=== PATIENT | male | born 1980 | race Caucasian/White ===

== ENCOUNTER 2018-12-19 16:05 | Emergency (ER) | payer SELFPAY ==
[~2018-12-19] VITALS: Ht 172.7 cm; Wt 70.0 kg
[2018-12-19] MEDS ORDERED: SODIUM CHLORIDE 0.9% 1,000 ML IV ONE (16:43)
[2018-12-19] MEDS ORDERED: ONDANSETRON HCL 4MG/2ML INJ IV STA (16:43)
[2018-12-19] MEDS ORDERED: KETOROLAC 15MG/ML VIAL IV ONE (16:45)
[2018-12-19] MEDS ORDERED: FAMOTIDINE 20MG/2ML VIAL IV ONE (16:45)
[2018-12-19] MEDS ORDERED: MAGNESIUM/ALUMINUM HYDROXIDE/SIMETHICONE 30ML UDC PO ONE (16:45)
[2018-12-19 17:05] LABS: CHLORIDE 101 mEq/L (98-107)
[2018-12-19 17:07] LABS: PARTIAL THROMBOPLASTIN TIME 22.9 sec (23.4-31.0); PROTHROMBIN TIME 10.3 sec (9.6-11.0)
[2018-12-19 17:08] LABS: ETHANOL BLOOD < 10 mg/dL
[2018-12-19 17:11] LABS: BASOPHILS % 1.2 % (0.0-2.0); EOSINOPHILS % 0.8 % (0.0-5.0); HEMATOCRIT. 42.8 % (42.0-52.0); HEMOGLOBIN. 14.8 g/dL (14.0-18.0); LYMPHOCYTES % 39.2 % (20.0-50.0); MEAN CORPUSCULAR HEMOGLOBIN 30.6 pg (28.0-32.0); MEAN CORPUSCULAR VOLUME 88.6 fL (80.0-94.0); MEAN PLATELET VOLUME 7.8 fl (7.4-10.4); MONOCYTES % 7.7 % (2.0-8.0); NEUTROPHILS % 51.1 % (40.0-76.0); PLATELET 329 x1000/uL (130-400); RED BLOOD CELL COUNT 4.83 mill/uL (4.7-6.1); RED CELL DISTRIBUTION WIDTH 13.2 % (11.6-14.6)
[2018-12-19 18:32] LABS: *BENZODIAZEPINES SCREEN URINE NEGATIVE (NEGATIVE); *COCAINE SCREEN URINE NEGATIVE (NEGATIVE); METHADONE URINE SCREEN NEGATIVE (NEGATIVE); OPIATES URINE SCREEN NEGATIVE (NEGATIVE); PHENCYCLIDINE URINE SCREEN NEGATIVE (NEGATIVE)
[2018-12-19 18:33] LABS: *AMPHETAMINES SCREEN URINE NEGATIVE (NEGATIVE); *BARBITURATES SCREEN URINE NEGATIVE (NEGATIVE); CANNABINOID URINE SCREEN NEGATIVE (NEGATIVE)
[2018-12-19 21:30] VITALS: BP 110/67
== END 2018-12-19 21:56 | disposition home or self-care (01) ==
LOC: ER 16:05
DX: R10.0 Acute abdomen (principal); R11.2 Nausea with vomiting, unspecified; R19.7 Diarrhea, unspecified; E86.0 Dehydration
CPT/HCPCS: 36415; 74176; 80053; 80305; 80320; 83605; 83690; 83880; 84484; 85025; 85610; 85730; 87040; 87086; 93005; 96361; 96374; 96375; 99284; J1885; J2405; J3490; J7030; G0480